=== PATIENT | female | born 1940 | race Caucasian/White ===

== ENCOUNTER 2023-12-13 14:08 | Emergency (ER) | payer MEDICARE, OTHER ==
[2023-12-13] MEDS ORDERED: Boostrix 0.5 ML (Tdap) VIAL (>/=7 yrs of age) ONE (15:14)
[2023-12-13] MEDS ORDERED: Bacitracin 1 PK ONE (15:28)
== END 2023-12-13 15:40 | disposition home or self-care (01) ==
LOC: NAV ERS 14:08
DX: S51.812A Laceration without foreign body of left forearm, initial encounter (principal); S20.214A Contusion of middle front wall of thorax, initial encounter; S60.511A Abrasion of right hand, initial encounter; E04.1 Nontoxic single thyroid nodule; R90.82 White matter disease, unspecified; I48.91 Unspecified atrial fibrillation; I10 Essential (primary) hypertension; J44.9 Chronic obstructive pulmonary disease, unspecified; Z79.899 Other long term (current) drug therapy; Z79.82 Long term (current) use of aspirin; Z79.02 Long term (current) use of antithrombotics/antiplatelets; Z23 Encounter for immunization; W22.8XXA Striking against or struck by other objects, initial encounter
CPT/HCPCS: 70450; 72125; 90471; 90715

== ENCOUNTER 2024-10-25 08:56 | Emergency (ER) | payer MEDICARE | END 2024-10-25 10:30 | disposition home or self-care (01) | LOC: NAV ERS 08:56 | DX: S62.515A Nondisplaced fracture of proximal phalanx of left thumb, initial encounter for closed fracture (principal); I48.91 Unspecified atrial fibrillation; J44.9 Chronic obstructive pulmonary disease, unspecified; W19.XXXA Unspecified fall, initial encounter; W22.8XXA Striking against or struck by other objects, initial encounter | CPT/HCPCS: 99283 ==